=== PATIENT | male | born 1945 | race Caucasian/White ===

== ENCOUNTER 2017-06-23 08:59 | Emergency (ER) | payer MEDICARE, BC ==
--- NOTE | 2017-06-23 09:21 | ED ---
Abdominal Pain/Male - HPI Summary HPI Summary: Patient to ED today with cc of rectal pain--Is similar in past to the pain he had in 2014 when he had surgery for a miky-anal abscess. There is also a notation in a past H&P that he had surgery for the same 15 years prior as well. Today patient denies-fever, chills, nausea, vomiting, constipation or diarrhea. Patient came to ED for evaluation due to his PCP is out of town and he could not get a timely appointment at surgeons office. Patient reports increase pain with bowel movement. Patient denies mucous or bloody recal discharge - History of Current Complaint Chief Complaint: EDRectalPain Stated Complaint: RECTAL PAIN Time Seen by Provider: 06/23/17 09:21 Hx Obtained From: Patient Onset/Duration: Gradual Onset, Lasting Days - 3, Still Present Timing: Constant Severity Initially: Moderate Severity Currently: Moderate Pain Intensity: 3 - 3 at rest increase with passing stool Pain Scale Used: 0-10 Numeric Location: Other - rectal Radiates: No Aggravating Factor(s): Other: - passing stool Alleviating Factor(s): Nothing Associated Signs And Symptoms: Positive: Negative - Allergies/Home Medications Allergies/Adverse Reactions: Allergies Allergy/AdvReac Type Severity Reaction Status Date / Time No Known Allergies Allergy Verified 08/22/14 14:48 Home Medications: Home Medications Allopurinol TAB* [Zyloprim 300 MG TAB*] 300 mg PO DAILY 06/23/17 [History Confirmed 06/23/17] Multivitamins/Minerals TAB* [Theragran/minerals TAB*] 1 tab PO DAILY 06/23/17 [ History Confirmed 06/23/17] Pantoprazole TAB (NF) [Protonix TAB (NF)] 20 mg PO DAILY 06/23/17 [History Confirmed 06/23/17] amLODIPine TAB* [Norvasc 5 mg TAB*] 5 mg PO DAILY 06/23/17 [History Confirmed ] PMH/Surg Hx/FS Hx/Imm Hx Previously Healthy: No Cardiovascular History: Reports: Hx Hypertension GI History: Reports: Hx Gastroesophageal Reflux Disease Comment Only: Other GI Disorders - abd pain Musculoskeletal History: Reports: Hx Gout - Surgical History Surgery Procedure, Year, and Place: lap knee right 2002, perianal abscess 2014 Hx Anesthesia Reactions: No - Immunization History Immunizations Up to Date: Unable to Obtain/Confirm Infectious Disease History: No Infectious Disease History: Denies: Traveled Outside the [place] in Last 30 Days - Family History Known Family History: Positive: None - Social History Occupation: Retired Lives: Alone Alcohol Use: Occasionally Substance Use Type: Reports: None Smoking Status (MU): Never Smoked Tobacco Review of Systems Constitutional: Negative Eyes: Negative ENT: Negative Cardiovascular: Negative Respiratory: Negative Positive: Other - rectal pain Genitourinary: Negative Musculoskeletal: Negative Skin: Negative Neurological: Negative Psychological: Normal All Other Systems Reviewed And Are Negative: Yes Physical Exam Triage Information Reviewed: Yes Vital Signs On Initial Exam: Initial Vitals Temp Pulse Resp BP Pulse Ox 98.6 F 102 18 176/88 100 06/23/17 09:01 06/23/17 09:01 06/23/17 09:01 06/23/17 09:01 06/23/17 09:01 Vital Signs Reviewed: Yes Appearance: Positive: Well-Appearing, No Pain Distress, Well-Nourished Skin: Positive: Warm, Skin Color Reflects Adequate Perfusion Head/Face: Positive: Normal Head/Face Inspection Eyes: Positive: Normal, EOMI, CHETNA, Conjunctiva Clear ENT: Positive: Normal ENT inspection, Hearing grossly normal. Negative: Trismus , Muffled voice, Hoarse voice Neck: Positive: Supple, Nontender Respiratory/Lung Sounds: Positive: Breath Sounds Present. Negative: Unable to speak in full sentences Cardiovascular: Positive: RRR, Pulses are Symmetrical in both Upper and Lower Extremities Abdomen Description: Positive: Nontender, No Organomegaly, Soft, Other: - does have some mucus rectal discharge (pateient states some rectal drainage has been the usual after 2015 surgery. Negative: CVA Tenderness (R), CVA Tenderness (L) Bowel Sounds: Positive: Present Musculoskeletal: Positive: Normal, Strength/ROM Intact Neurological: Positive: Normal, Sensory/Motor Intact, Alert, Oriented to Person Place, Time, CN Intact II-III Psychiatric: Positive: Normal, Affect/Mood Appropriate AVPU Assessment: Alert - [place] Coma Scale Best Eye Response: 4 - Spontaneous Best Motor Response: 6 - Obeys Commands Best Verbal Response: 5 - Oriented Coma Scale Total: 15 Diagnostics - Vital Signs Vital Signs Temp Pulse Resp BP Pulse Ox 06/23/17 09:01 98.6 F 102 18 176/88 100 - Laboratory Lab Statement: Any lab studies that have been ordered have been reviewed, and results considered in the medical decision making process. Abdominal Pain Fem Course/Dx - Diagnoses Provider Diagnoses: Rectal abscess, Hypertension Discharge - Sign-Out/Discharge Documenting (check all that apply): Sign-Out Patient Signing out patient TO: Ronda Gooden - Discharge Plan Referrals: Chris Michelle MD [Primary Care Provider] -
[2017-06-23 10:16] LABS: ABS Basophils 0 10^3/ul (0-0.2); ABS Eosinophils 0.1 10^3/ul (0-0.6); ABS Lymphocytes 1.2 10^3/ul (1.0-4.8); ABS Monocytes 0.4 10^3/ul (0-0.8); ABS Nucleated RBC 0 10^3/ul; Eosinophil % 1.2 % (0-6); Hematocrit 42 % (42-52); Lymphocyte % 17.8 % (25-47); Mean Corpuscular HGB Conc 34 g/dl (31-36); Mean Corpuscular Hemoglobin 33 pg (27-31); Mean Corpuscular Volume 98 fL (80-94); Mean Platelet Volume 7.3 um3 (7.4-10.4); Nucleated Red Blood Cells % 0; Platelet Count 279 10^3/ul (150-450); Red Blood Count 4.23 10^6/ul (4.0-5.4); Red Cell Distribution Width 13 % (10.5-15); White Blood Count 6.7 10^3/ul (3.5-10.8)
[2017-06-23 10:34] LABS: EGFR Non-African American 90.3 (>60)
[2017-06-23] MEDS ORDERED: Iohexol 300* (CONTRAST) 10 ML SDV IV ONE (10:37)
[2017-06-23 11:45] LABS: Urine Appearance Clear; Urine Blood Negative (Negative); Urine Color Straw; Urine Ketones Negative (Negative); Urine Protein Negative (Negative); Urine Specific Gravity 1.004 (1.010-1.030); Urine Urobilinogen Negative (Negative)
--- NOTE | 2017-06-23 12:52 | RAD ---
CLINICAL HISTORY: Rectal pain and bleeding x3 days. Relevant history includes a perianal abscess treated 3 years earlier. COMPARISON: CT of the abdomen and pelvis dated May 23, 2012 TECHNIQUE: Contrast enhanced CT examination of the abdomen and pelvis from the lung bases through the initial tuberosities. The patient received 121 mL Omnipaque 300 intravenously prior to imaging.The patient received oral contrast as well prior to imaging. FINDINGS: VISUALIZED LUNG BASES: The visualized lung bases are grossly clear. There is no pleural effusion. ABDOMEN AND PELVIS: The liver, spleen, pancreas and adrenal glands are grossly normal in appearance. Located along the anterior margin of the lower right lobe of the liver is a fluid density structure that is seen to be contiguous with the gallbladder on the sagittal plane images (image 34) most consistent with a gallbladder diverticulum. The gallbladder is otherwise normal in appearance. The kidneys are normal in appearance without focal mass, calcification or signs of hydronephrosis. There are contrast has progressed as far as the proximal sigmoid colon. The small and large bowel are not distended. The patient's normal appendix is identified in the right lower quadrant measuring 5 mm in diameter with contrast in the lumen (coronal image 40). The rectum appears normal. There is no discernible drainable collection either surrounding the mass or in the subcutaneous fat of the medial buttocks bilaterally.. There is no gross retroperitoneal or mesenteric lymphadenopathy. Hyperattenuating material in the prostate gland are most consistent with radiation seeding devices. The abdominal aorta and iliac arteries are normal in course and diameter. Degenerative changes include multilevel loss of intervertebral disc height involving the lower thoracic and lumbar spine.There are no sinister bone lesions. IMPRESSION: There are no CT apparent acute abnormalities as described above. Chronic, degenerative and iatrogenic findings are described.
[2017-06-23 13:34] VITALS: BP 120/95
--- NOTE | 2017-06-23 15:37 | PN ---
Progress Note - Progress Note Date of Service: 06/23/17 Note: Patient was signed out by Aspen Merritt NP. Patient to ED today with cc of rectal pain--Is similar in past to the pain he had in 2014 when he had surgery for a miky-anal abscess. There is also a notation in a past H&P that he had surgery for the same 15 years prior as well. Today patient denies-fever, chills, nausea, vomiting, constipation or diarrhea. Patient came to ED for evaluation due to his PCP is out of town and he could not get a timely appointment at surgeons office. Patient reports increase pain with bowel movement. Patient denies mucous or bloody recal discharge. CT abdomen and pelvis obtained to assess for perianal abscess IMPRESSION: There are no CT apparent acute abnormalities as described above. Chronic, degenerative and iatrogenic findings are described. I discussed the findings with patient and patient's family member. I discussed the case with Dr. Holman. At this time, we are unsure if the mucous drainage from the rectum is due to an overgrowth of bacteria and is causing worsening pain. We will place him on an antibiotic, Augmentin 7 days. I've also discussed with the patient this may be internal hemorrhoids that are not well visualized on physical exam. Due to his increasing constipation in the past week, I've advised he add senna to his already obstipation regimen. He will follow-up with his PCP in [address] Stanley, surgery. in 6 days as scheduled. He is okay with this plan and follow-up. I have offered him pain medications, but he declines. He states his pain is currently 1 out of 10 and only worsens with defecation. White count as well as other labs are all within normal limits. Blood pressure is maintained and other vital signs are stable. There is no other signs that he is having an infection, and I am not worried of sepsis at this time. Condition: Good Disposition: Home
== END 2017-06-23 13:33 | disposition home or self-care (01) ==
LOC: ED 08:59
DX: K61.0 Anal abscess (principal); I10 Essential (primary) hypertension; K62.89 Other specified diseases of anus and rectum; Z87.19 Personal history of other diseases of the digestive system
CPT/HCPCS: 36415; 74177; 80053; 81003; 83605; 85025; 85610; 85730; 86140; 87040; 99282; Q9967